=== PATIENT | female | born 1995 | race African-American/Black ===

== ENCOUNTER 2018-01-13 20:12 | Emergency (ER) | payer BC ==
[~2018-01-13] VITALS: Ht 170.2 cm; Wt 52.2 kg
[2018-01-13 20:29] VITALS: Ht 170.2 cm; Wt 52.2 kg
[2018-01-13 21:30] VITALS: BP 145/91
== END 2018-01-13 21:30 | disposition home or self-care (01) ==
LOC: ED 20:12
DX: G43.909 Migraine, unspecified, not intractable, without status migrainosus (principal)
CPT/HCPCS: J1885; J3030; Q0162